=== PATIENT | male | born 1950 | race Asian ===

== ENCOUNTER → 2020-11-18 09:47 | Outpatient (CLI) | payer MEDICARE, SELFPAY ==
--- NOTE | 2020-11-18 18:09 | DI.NM.S_ITS ---
DATE OF SERVICE: PROCEDURE: Exercise perfusion study. DATE OF STUDY: November 18, 2020. INDICATIONS: Chest pain, shortness of breath, hypertension, hyperlipidemia. RADIOPHARMACEUTICAL: 25.3 millicurie technetium-99m Myoview IV was injected at stress and 13.6 millicurie technetium-99m Myoview IV was injected at rest. CARDIAC STRESS: Initially, the patient walked on Kang protocol. He walked on Kang protocol under the supervision of an attending staff for 6 minutes and 43 seconds, achieved 7 METs of workload, target heart rate 64 percent and flat blood pressure response. The patient had metoprolol succinate 50 mg in the morning. As there was no target heart rate achieved, exercise stress test was converted to pharmacological perfusion study. During Lexiscan injection the patient had significant dyspnea. During exercise stress test, baseline EKG showed sinus rhythm without any significant ischemic changes. However, during Lexiscan infusion, patient has up to 2.[address] depression in leads V4 to V6 and inferior leads. No significant arrhythmias seen. RAW DATA: There is increased subdiaphragmatic activity. GATED STUDY: Resting LV ejection fraction 60 percent and stress LV ejection fraction 53 percent with apical hypokinesis. Resting end-diastolic volume 173 mL. TID ratio 1.08, which is within normal limits. Lung/heart ratio 0.37, which is within normal limits. MYOCARDIAL PERFUSION SCAN: Stress supine, resting supine and stress prone images were compared to each other. 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 CONCLUSION: This is an abnormal myocardial perfusion study consistent with moderate size infarction of mid to distal anterior wall, anterior apex with significant jessica-infarct ischemia in the mid to distal anterior wall, entire apex and distal anterolateral wall. I called the patient and discussed the finding. The patient is back on to [facility]. He is doing okay without any cardiovascular symptoms. I advised him to go directly to [facility]. I spoke to emergency room physician Dr. Castellanos about the patient's abnormal stress test finding and arrival of the patient. He will need transfer to the facility where he can have left heart catheterization and further management. Yohannes Saldana - DIRECT MARKETING REPRESENTATIVE/fn/cs doc#: [id number]/job#: [id number] dd: 11/18/2020 17:38:00 dt: 11/18/2020 17:57:00 DICTATING MD/COPIES TO: Betty Maier MD COPIES MNE: [id number];
== END ==
PROVIDERS: PCP Student in an Organized Health Care Education/Training Program; Referring Provider Student in an Organized Health Care Education/Training Program; Visit Provider Student in an Organized Health Care Education/Training Program
DX: I21.09 ST elevation (STEMI) myocardial infarction involving other coronary artery of anterior wall (principal); R06.00 Dyspnea, unspecified; R07.9 Chest pain, unspecified; R06.02 Shortness of breath; I10 Essential (primary) hypertension; E78.5 Hyperlipidemia, unspecified
CPT/HCPCS: 78452; 93017; A9502; J2785

== ENCOUNTER → 2023-12-09 14:26 | Outpatient (CLI) | payer MEDICARE, SELFPAY ==
--- NOTE | 2019-12-09 15:35 | DI.NM.S_ITS ---
DATE OF SERVICE: 12/09/2023 EXERCISE TREADMILL STRESS TEST Procedure: Exercise treadmill stress test without imaging. Ordering Provider: Beau Jaun MD Indications: The patient is a 72-year-old male with mild peripheral arterial disease, being evaluated for renal transplant. FINDINGS: 1. The patient was able to exercise for 6 minutes 18 seconds on a standard Kang protocol suggesting mildly impaired exercise capacity with an SANTIAGO of +7%, achieving 7.0 METS. 2. He had a mildly blunted heart rate response to exercise with a resting heart rate of 76 BPM, increasing to a maximum of 116 BPM (77% of his predicted maximum). He had a mild hypertensive blood pressure response with a resting blood pressure of 180/70 that increased to a maximum of 218/70. 3. He had no chest discomfort or other anginal symptoms. 4. His resting ECG showed sinus rhythm with normal ST segments. There were no significant ST-segment shifts or arrhythmias with stress. IMPRESSION: 1. Normal exercise treadmill stress test for ischemia although with reduced sensitivity because of a blunted heart rate response. Consider a pharmacologic perfusion imaging study if there is a high degree of clinical concern for ischemic heart disease. 2. Mildly impaired exercise capacity without angina or arrhythmias. dd:12/09/2023 16:29:00 dt: DICTATING MD/COPIES TO:Donato Slaughter MD
--- NOTE | 2023-12-16 10:40 | DI.NM.S_ITS ---
DATE OF SERVICE: 12/09/2023 EXERCISE TREADMILL STRESS TEST PROCEDURE: Exercise treadmill stress test without imaging. ORDERING PROVIDER: Beau Juan MD INDICATIONS: The patient is a 72-year-old male with mild peripheral arterial disease, being evaluated for renal transplant. FINDINGS: 1.The patient was able to exercise for 6 minutes 18 seconds on a standard Kang protocol suggesting mildly impaired exercise capacity with an SANTIAGO of +7%, achieving 7.0 METS. 2.He had a mildly blunted heart rate response to exercise, with a resting heart rate of 76 BPM, increasing to a maximum of 116 BPM (77% of his predicted maximum). He had a mild hypertensive blood pressure response with a resting blood pressure of 180/70 that increased to a maximum of 218/70. 3.He had no chest discomfort or other anginal symptoms. 4.His resting ECG showed sinus rhythm with normal ST segments. There are no significant ST-segment shifts or arrhythmias with stress. IMPRESSION: 1.Normal exercise treadmill stress test for ischemia, although with reduced sensitivity because of a blunted heart rate response. Consider a pharmacologic perfusion imaging study if there is a high degree of clinical concern for ischemic heart disease. 2.Mildly impaired exercise capacity without angina or arrhythmias. Shana Yohannes - FARAZ/dante/RONAK doc#: [id number]/job#: [id number] dd: 12/09/2023 16:29:00 dt: 12/09/2023 18:27:00 DICTATING MD/COPIES TO: Donato Slaughter MD; Beau Juan MD COPIES MNE: AKASH;
== END ==
PROVIDERS: PCP Student in an Organized Health Care Education/Training Program; Referring Provider Student in an Organized Health Care Education/Training Program; Visit Provider Student in an Organized Health Care Education/Training Program
DX: Z01.818 Encounter for other preprocedural examination; I73.9 Peripheral vascular disease, unspecified
CPT/HCPCS: 93017